=== PATIENT | male | born 1965 | race Caucasian/White ===

== ENCOUNTER 2021-10-29 07:57 | Outpatient (CLI) | payer OTHER ==
[2021-10-29] MEDS ORDERED: Magnevist 469MG/ML 20 ML VIAL ONE (09:50)
== END 2021-10-29 07:58 | disposition home or self-care (01) ==
LOC: MRI 07:57
PROVIDERS: ATTEND Nurse Practitioner Family
DX: M62.81 Muscle weakness (generalized) (principal); F43.23 Adjustment disorder with mixed anxiety and depressed mood; R25.1 Tremor, unspecified; I67.89 Other cerebrovascular disease; Z79.899 Other long term (current) drug therapy
CPT/HCPCS: 70553

== ENCOUNTER 2022-04-04 07:09 | Emergency (ER) | payer OTHER ==
[2022-04-04 07:47] LABS: #Eosinphils 0.1 thou/uL (0.0-0.7); #Lymphocytes 1.2 thou/uL (1.20-3.40); #Monocytes 0.7 thou/uL (0.11-0.59); #Neutrophils 6.3 thou/uL (1.40-6.50); %Basophils 0.4 % (0.0-1.0); %Eosinophils 0.8 % (0.0-10.0); %Lymphocytes 14.9 % (21.0-51.0); %Monocytes 8.2 % (0.0-10.0); %Neutrophils 75.7 % (42.0-75.0); Hemoglobin 14.7 g/dL (14.0-18.0); Mean Corpuscular HGB CONC 32.6 g/dL (32.0-36.0); Mean Corpuscular Hemoglobin 33.8 pg (27.0-31.0); Mean Platelet Volume 8.2 fL (7.4-10.4); Platelet Count 258 thou/uL (130-400); RBC Distribution Width 11.7 % (11.5-14.5); Red Blood Cell (RBC) Count 4.34 mill/uL (4.70-6.10); White Blood Cell (WBC) Count 8.3 thou/uL (4.8-10.8)
[2022-04-04] MEDS ORDERED: Morphine 4 MG/ML VIAL ONE (07:47)
[2022-04-04] MEDS ORDERED: Ondansetron PF 4 MG/2 ML Vial ONE (07:47)
[2022-04-04] MEDS ORDERED: Iopamidol 370 76% 100 ML VIAL ONE (08:00)
[2022-04-04 08:08] LABS: ALT (SGPT) 49 U/L (8-55); AST (SGOT) 35 U/L (5-34); Albumin 3.8 g/dL (3.5-5.0); Alkaline Phosphatase 62 U/L (40-110); Anion Gap 12 mmol/L (10-20); BUN (Urea Nitrogen) 16 mg/dL (8.4-25.7); Bilirubin, Total 0.4 mg/dL (0.2-1.2); Calc. Creatinine Clearance 0 mL/min (70-130); Calcium 9.3 mg/dL (7.8-10.44); Carbon Dioxide 25 mmol/L (22-29); Chloride 104 mmol/L (98-107); Estimated GFR 82; Globulin 3.3 g/dL (2.4-3.5); Glucose 93 mg/dL (70-105); Potassium 4.4 mmol/L (3.5-5.1); Protein, Total 7.1 g/dL (6.0-8.3); Sodium 137 mmol/L (136-145)
== END 2022-04-04 10:16 | disposition home or self-care (01) ==
LOC: ERS 07:09
DX: K57.92 Diverticulitis of intestine, part unspecified, without perforation or abscess without bleeding (principal)
CPT/HCPCS: 36415; 74177; 80053; 85025; 96361; 96374; 96375; J2270; J2405; Q9967

== ENCOUNTER 2022-08-15 07:34 | Outpatient (CLI) | payer OTHER | END 2022-08-15 07:35 | disposition home or self-care (01) | LOC: CT 07:34 | PROVIDERS: ATTEND Nurse Practitioner Family | DX: R25.1 Tremor, unspecified (principal) | CPT/HCPCS: 72125 ==

== ENCOUNTER 2022-11-05 15:54 | Emergency (ER) | payer OTHER | END 2022-11-05 20:13 | disposition home or self-care (01) | LOC: ERS 15:54 | DX: U07.1 COVID-19 (principal) | CPT/HCPCS: 87081; 87430; 99283 ==

== ENCOUNTER 2023-06-26 09:05 | Outpatient (CLI) | payer BC | END 2023-06-26 09:06 | disposition home or self-care (01) | LOC: BICRAD 09:05 | PROVIDERS: ATTEND Nurse Practitioner Family | DX: R07.81 Pleurodynia (principal) ==